=== PATIENT | male | born 1995 | race Two or more races ===

== ENCOUNTER 2022-07-29 17:29 | Emergency (ER) | payer BC ==
[~2022-07-29] VITALS: Ht 182.9 cm; Wt 61.2 kg
[2022-07-29] MEDS ORDERED: LEXAPRO20 MG PO (18:35)
[2022-07-29] MEDS ORDERED: VYVANSE50 MG PO (18:36)
== END 2022-07-29 21:07 | disposition home or self-care (01) ==
LOC: ER 17:29
DX: R19.7 Diarrhea, unspecified (principal); Z20.822 Contact with and (suspected) exposure to COVID-19